=== PATIENT | female | born 1930 | race Caucasian/White ===

== ENCOUNTER 2018-09-10 16:46 | Inpatient (IN) | payer MEDICARE, BC ==
[~2018-09-10] VITALS: Ht 160 cm; Wt 66.5 kg
[2018-09-10] VITALS (9 sets, daily range): BP systolic 96–161; BP diastolic 46–66; BMI 19.8
--- NOTE | ~2018-09-10 | EC ---
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 Ao 220 cm/sec RVOT 95 cm/sec RA cm/sec PA 146 cm/sec AV Gradient Peak 19.33mmHg AV Mean 9.71 mmHg AV Area 1.4 cm MV Gradient Peak 6.23 mmHg MV Mean 1.98 mmHg MV Area cm COMMENTS: Marine Equipment Sales Engineer: Angella QUIROGA Supervisor Roller Printing: 1 Dr. Miranda TAPE# PACS Pericardial Effusion N DATE OF SERVICE: 09/11/2018 ECHOCARDIOGRAM DATE OF SERVICE: 09/11/2018 FINDINGS: 1. Left ventricular chamber size is within normal limits. Left ventricular systolic function is normal. Overall ejection fraction estimated at 60%. 2. Left atrium, right atrium, and right ventricular chamber sizes are within ECHOCARDIOGRAM REPORT [id number] MARISOL FALCON normal limits. 3. Valvular structures: Aortic valve demonstrates mild calcific aortic stenosis, valve area calculates 1.4 cm-squared. There is a gradient of 20-mm across the valve. The remaining valvular structures have normal structure and motion. 4. Doppler interrogation elsewise reveals mild aortic insufficiency, mild tricuspid regurgitation, no other valvular insufficiency or stenosis. Pulmonary systolic pressure is estimated at 27 mmHg. 5. No evidence of pericardial effusion or left ventricular thrombus. TRANSINT:[id number] Voice Confirmation ID: [id number] DOCUMENT ID: [id number] EVERETT MIRANDA MD CC: [id number] DICTATION DATE: 09/12/18 0853 MARKER HAND: 09/12/18 0941 ADM IN [facility] [id number] [place] [address]
[2018-09-10] MEDS ORDERED: NORVASC2.5 MG PO (16:53)
[2018-09-10] MEDS ORDERED: TIROSINT75 MCG PO (16:53)
[2018-09-10] MEDS ORDERED: COZAAR50 MG PO (16:54)
[2018-09-10] MEDS ORDERED: PACERONE200 MG PO (16:54)
[2018-09-10] MEDS ORDERED: ZOCOR40 MG PO (16:54)
[2018-09-10] MEDS ORDERED: BENTYL 20 MG TA20 MG PO (16:54)
[2018-09-10] MEDS ORDERED: PLAVIX75 MG PO (16:54)
[2018-09-10] MEDS ORDERED: PRESERVISION PO (16:55)
[2018-09-10] MEDS ORDERED: BAYER CHEWABLE81 MG PO (16:55)
[2018-09-10] MEDS ORDERED: MECLIZINE HCL25 MG PO (16:56)
[2018-09-10] MEDS ORDERED: CATAPRES0.1 MG PO (16:56)
[2018-09-10] MEDS ORDERED: ACETAMINOPHEN325 MG PO (16:57)
[2018-09-10] MEDS ORDERED: ZOFRAN ODT4 MG/UDTAB PO (16:57)
[2018-09-10] MEDS ORDERED: NITROSTAT0.4 MG SL (16:57)
[2018-09-10] MEDS ORDERED: VITAMIN B-121000 MCG IM (16:57)
[2018-09-10 17:35] LABS: BASOPHILS 0.4 % (0-2); EOSINOPHILS 0.7 % (0-7); IMMATURE GRANULOCYTES 0.2 % (0-5); LYMPHOCYTES 13.7 % (15-50); MCH 30.4 pg (26.0-34.0); MCHC 31.3 g/dL (31.0-37.0); MCV 97.2 fL (80.0-100.0); MEAN PLATELET VOLUME 8.5 fL (7.4-10.4); MONOCYTES 10.9 % (2-11); NEUTROPHILS 74.1 % (40-80); PLATELET COUNT 208 10x3/uL (130-400); RBC 2.47 10x6/uL (4.00-5.40); RDW 13.9 % (11.5-14.5); WBC 5.7 10x3/uL (4.8-10.8)
[2018-09-10 17:46] LABS: INR 1.13 (0.85-1.17)
[2018-09-10 17:49] LABS: HEMOGLOBIN 7.5 g/dL (12-16)
[2018-09-10 17:52] LABS: ALKALINE PHOSPHATASE 58 U/L (46-116); ALT (SGPT) 21 U/L (10-68); BILIRUBIN - TOTAL 0.36 mg/dL (0.2-1.3); CALC OSMOLALITY 289 mosm/kg (275-300); CALCIUM 7.8 mg/dL (8.5-10.1); CARBON DIOXIDE 25.4 mmol/L (21.0-32.0); CHLORIDE - SERUM 107 mmol/L (98-107); CREATININE - SERUM 0.9 mg/dL (0.6-1.3); GLUCOSE 94 mg/dL (74-106); POTASSIUM - SERUM 3.9 mmol/L (3.5-5.1); PROTEIN - SERUM 6.3 g/dL (6.4-8.2); SODIUM 142 mmol/L (136-145); UREA NITROGEN 31 mg/dL (7-18); eGFR NON AFRICAN AMERICAN 63 mL/min (90-120)
[2018-09-10 18:02] LABS: CKMB 0.7 U/L (0.0-3.6); CREATINE KINASE 57 UL (21-215)
[2018-09-10 18:03] LABS: TROPONIN-I < 0.017 ng/mL (0.000-0.060)
--- NOTE | 2018-09-10 19:32 | NUR ---
RECIEVED REPORT FROM LIBORIO CEDENO IN ER, AWAIT PATIENT ARRIVAL.
--- NOTE | 2018-09-10 20:30 | NUR ---
PATIENT ARRIVED TO UNIT 1999, MOVED SELF TO ICU BED FROM [facility], SAFETY MAINTAINED. ADMISSIONS ASSESSMENT COMPLETE, PLEASE SEE FLOW SHEETS FOR DETAILS. PERSONAL BELONGINGS INCLUDE [place]JAMA SHIRT AND PANTS, SHOES AND GLASSES. FAMILY IN ROOM AT 2030, THEY HAVE HER PURSE AND WILL TAKE IT HOME. PATIENT DENIES PAIN/NEEDS. HEMODYNAMICALLY STABLE UPON ARRIVAL AND AT END OF ASSESSMENT PERIOD. ALL QUESTIONS FROM FAMILY AND PATIENT ANSWERED. WILL CONTINUE PLAN OF CARE.
--- NOTE | 2018-09-10 21:00 | NUR ---
ASSISTED UP TO BEDSIDE CAMODE. SOME DIZZINESS AND LIGHTHEADEDNESS NOTED. APPLIED COOL RAG TO FACE AND NACK, THIS HELPED PER PATIENT. VOID AND STOOL OUT. MAX ASSIST BACK TO BED, VERY DIZZY AND LIGHTHEADED. SAFETY MAINTAINED AND REPOSITIONED IN BED FOR COMFORT. STATES FEELS BETTER BACK TO BED. HEMODYNAMICALLY STABLE. BED LOW AND LOCKED, CALL LIGHT IN REACH. WILL CONTINUE PLAN OF CARE.
--- NOTE | 2018-09-10 22:56 | NUR ---
REASSESSMENT COMPLETE, PLEASE SEE FLOW SHEETS FOR DETAILS. NO ACUTE CHANGES FROM PREVIOUS ASSESSMENT TO NOTE. DENIES PAIN/NEEDS. HEMODYNAMICALLY STABLE. BED LOW AND LOCKED, CALL LIGHT IN REACH. WILL CONTINUE PLAN OF CARE.
[2018-09-11] VITALS (25 sets, daily range): BP systolic 112–165; BP diastolic 51–92
[2018-09-11 00:50] LABS: BASOPHILS 0.7 % (0-2); EOSINOPHILS 0.9 % (0-7); HEMATOCRIT 20.6 % (36.0-48.0); LYMPHOCYTES 13.6 % (15-50); MCHC 31.1 g/dL (31.0-37.0); MCV 96.7 fL (80.0-100.0); MEAN PLATELET VOLUME 9.1 fL (7.4-10.4); MONOCYTES 11.8 % (2-11); PLATELET COUNT 198 10x3/uL (130-400); RBC 2.13 10x6/uL (4.00-5.40); RDW 13.9 % (11.5-14.5); WBC 5.5 10x3/uL (4.8-10.8)
[2018-09-11 00:51] LABS: HEMOGLOBIN 6.4 g/dL (12-16)
--- NOTE | 2018-09-11 00:53 | NUR ---
LAB CALLED CRITICAL LAB, CALLED DR BARRIGA AND UPDATED, ORDERS RECIEVED.
--- NOTE | 2018-09-11 01:00 | NUR ---
CONSENT FOR BLOOD OBTAINED. NO QUESTIONS. VSS. WILL CONTINUE PLAN OF CARE.
--- NOTE | 2018-09-11 03:00 | NUR ---
REASSESSMENT COMPLETE, PLEASE SEE FLOW SHEETS FOR DETAILS. NO ACUTE CHANGES FROM PREVIOUS ASSESSMENT TO NOTE. RECIEVING BLOOD AT THIS TIME, TOLERATING WELL, NO REACTION TO NOTE. DENIES PAIN/NEEDS. BED LOW AND LOCKED, CALL LIGHT IN REACH. WILL CONTINUE PLAN OF CARE.
--- NOTE | 2018-09-11 07:00 | NUR ---
REPORT REOPCED FROM OUT GOING RN - PT AA&OX 4 - CPOC
[2018-09-11 07:11] LABS: ANION GAP 13.5 mmol/L (8-16); CALCIUM 7.5 mg/dL (8.5-10.1); CARBON DIOXIDE 22.3 mmol/L (21.0-32.0); CREATININE - SERUM 0.9 mg/dL (0.6-1.3); POTASSIUM - SERUM 3.8 mmol/L (3.5-5.1)
[2018-09-11 07:36] LABS: % SATURATION 16 % (15-55); IRON 49 ug/dl (35-150); TOTAL IRON BIND CAPACITY 290 ug/dl (260-445); UNSAT IRON BIND CAPACITY 241 ug/dl (150-375)
[2018-09-11 07:49] LABS: BASOPHILS 0.6 % (0-2); EOSINOPHILS 0.7 % (0-7); LYMPHOCYTES 18.5 % (15-50); MCH 29.7 pg (26.0-34.0); MCHC 31.6 g/dL (31.0-37.0); MEAN PLATELET VOLUME 9.2 fL (7.4-10.4); MONOCYTES 11.3 % (2-11); NEUTROPHILS 68.9 % (40-80); PLATELET COUNT 188 10x3/uL (130-400); RDW 15.1 % (11.5-14.5); WBC 5.4 10x3/uL (4.8-10.8)
[2018-09-11 07:54] LABS: HEMATOCRIT 25.6 % (36.0-48.0); HEMOGLOBIN 8.1 g/dL (12-16); MCV 93.8 fL (80.0-100.0); RBC 2.73 10x6/uL (4.00-5.40)
--- NOTE | 2018-09-11 09:00 | NUR ---
PT PLACEDON BED DAWSON ~500 URINE OUT PUT WITH SMALL SOFT STOOL - ORDER FOR URINE CULTURE - PT AGEED TO HAVE KOHLER PLACED - AGREED -
--- NOTE | 2018-09-11 09:25 | NUR ---
DR. CABRERA AT BEDSIDE FOR ASSESSMENT - ANSWERED ALL THE QUESTIONS TO PATIENT'S SATISFACTION - CPOC
--- NOTE | 2018-09-11 11:30 | NUR ---
DOG FOOD DOUGH MIXER AT BEDSIDE - CPOC
[2018-09-11 11:46] LABS: APPEARANCE CLEAR (CLEAR); COLOR YELLOW (YELLOW)
[2018-09-11 11:47] LABS: BILIRUBIN NEGATIVE (NEGATIVE); GLUCOSE NEGATIVE (NEGATIVE); KETONE SMALL mg/dL (NEGATIVE); NITRITE NEGATIVE (NEGATIVE); PROTEIN NEGATIVE (NEGATIVE); UROBILINOGEN NORMAL (NORMAL)
--- NOTE | 2018-09-11 12:00 | NUR ---
DR. MUNOZ - AT BEDSIDE FOR ASSESSMENT - PLAN FOR EGD TOMORROW 09/12/18 WITH TIVA - CONSENT FORMS PRINTED TO PRESENT TO PATIENT - CPOC
--- NOTE | 2018-09-11 12:50 | NUR ---
PT PLACED ON BED DAWSON - SMALL SOFT BRWON STOOL - CPOC
[2018-09-11 13:13] LABS: BASOPHILS 0.5 % (0-2); EOSINOPHILS 1.2 % (0-7); HEMATOCRIT 26.9 % (36.0-48.0); HEMOGLOBIN 8.6 g/dL (12-16); IMMATURE GRANULOCYTES 0.2 % (0-5); MCH 29.9 pg (26.0-34.0); MCV 93.4 fL (80.0-100.0); MEAN PLATELET VOLUME 8.9 fL (7.4-10.4); MONOCYTES 10.8 % (2-11); NEUTROPHILS 77.3 % (40-80); PLATELET COUNT 178 10x3/uL (130-400); RBC 2.88 10x6/uL (4.00-5.40); RDW 15.5 % (11.5-14.5)
--- NOTE | 2018-09-11 14:08 | NUR ---
ANSWERED CALL LIGHT - PLACED PT ON BED DAWSON -
--- NOTE | 2018-09-11 14:13 | MORECARE ---
CASE MANAGEMENT DISCHARGE SUMMARY PATIENT: MARISOL FALCON UNIT: [id number] ADM DATE: 09/10/18 AGE: 87 : [birth year] SEX: F ROOM/BED: D.2304 AUTHOR: LORENA,DOC PHYSICIAN: REFERRING PHYSICIAN: VENTURA BARRIGA MD DATE OF SERVICE: 09/11/18 Discharge Plan Patient Name: MARISOL FALCON Facility: [facility]:[place] : 1930 Planned Disposition: Anticipated Discharge Date: 09/13/18 Discharge Date: Expected LOS: 3 Initial Reviewer: [email or web address] Initial Review Date: 09/10/2018 Generated: 09/11/18 3:13 pm DCP- Discharge Planning Updated by [email or web address]: Tiffany Buck on 09/11/18 1:[address] Patient Name: MARISOL FALCON Admission Status: ER Accout number: [id number] Admission Date: 09-10-2018 : 1930 Admission Diagnosis: Attending: VENTURA BARRIGA Current LOS: 1 Anticipated DC Date: 09-13-2018 Planned Disposition: Primary Insurance: MEDICARE A & B Discharge Planning Comments: CM met with patient, her son, and her daughter to complete initial dc planning assessment. CM educated patient on the CM role and verbal consent given by patient to complete assessment. Patient lives at home alone and reports she is mostly independent in her care. She reports she has tried several times to get meals on wheels but they tell her she lives outside of the service area. She reports she lives 4 miles from the hospital. At discharge patient plans to return home and feels this is a safe discharge. CM discussed availability of home health, rehab services, and medical equipment. Patient unsure of known discharge needs at this time. CM will continue to follow and will assist as needed with dc plans/needs. Mohel: Tiffany Buck DCPIA - Discharge Planning Initial Assessment Updated by [email or web address]: Tiffany Buck on 09/11/18 2:10 pm * Is the patient Alert and Oriented? Yes * How many steps to enter\exit or inside your home? three * PCP Dr. Mikael Farfan [facility] * [facility] [address] * Preadmission Environment Home Alone * ADLs Independent * Equipment Cane Rolling Walker Wheelchair * List name and contact numbers for known caregivers / representatives who currently or will assist patient after discharge: Alan Falcon - son - [phone] Mireille Pratt - daughter - [phone] * Verbal permission to speak to the caregivers and representatives has been obtained from the patient. Yes * Community resources currently utilized None * Please name any agencies selected above. Has tried to get meals on wheels but they don't go to her house. She lives 4 miles from the hospital. * Additional services required to return to the preadmission environment? No * Can the patient safely return to the preadmission environment? Yes * Has this patient been hospitalized within the prior 30 days at any hospital? Yes Patient Name: MARISOL FALCON Page [id number] at 1413 All edits/amendments must be made on the electronic document DICTATION DATE: 09/11/181411 LITERATURE PROFESSOR: RADHA 09/11/181411 RPT#: [id number] DC DATE: STATUS: ADM IN [facility] [address] [place] [address] END OF REPORT
--- NOTE | 2018-09-11 14:40 | NUR ---
PT OFF BEDPAN - SOFT BROWN STOOL - PT RESTING WITH EYES CLOSED - RESPIRATIONS REG RATE AND RHYTHM
--- NOTE | 2018-09-11 15:33 | NUR ---
PLACED PT ON BED DAWSON - LIQUID RED STOOL - CLEANED PT - CPOC
--- NOTE | 2018-09-11 17:30 | NUR ---
RED LIQUID STOOL - PT INCONTENENT OF STOOL, BATHED PATIENT - CHANGED LINENS AND BED CLOTHES. CPOC
--- NOTE | 2018-09-11 18:08 | NUR ---
PLACED PT ON BED DAWSON - LIQUID RED COLORED STOOL -
--- NOTE | 2018-09-11 18:30 | NUR ---
LIQUID RED STOOL - BATHED PT CHANGED LINENS AND BED CLOTHS - PT RESTING
[2018-09-11 18:42] LABS: PATH REVIEW PERIPHERAL SMEAR REVIEWED
--- NOTE | 2018-09-11 19:30 | NUR ---
BEDSIDE SHIFT REPORT GIVEN BY DEPARTING RN. PT LAYING IN BED WATCHING TV. RT FA PIV INFUSING MD ORDERED MEDS. AAOX4. PERRLA. DENIES PAIN AT THIS TIME. ASSESSMENT COMPLETE. SEE FLOWSHEET FOR DETAILS. SAFETY MEASURES IN PLACE. CBIR.
--- NOTE | 2018-09-11 19:31 | NUR ---
USED CALL ROBERSON TO REQUEST CALL ROBERSON. MAROON RED LIQUID BM NOTED.
--- NOTE | 2018-09-11 19:45 | NUR ---
USED CALL LIGHT TO ALERT NURSE. REQUESTED BED DAWSON. LARGE AMOUNT OF MAROON RED LOOSE STOOL NOTED. PARTIAL LINEN CHANGE.
--- NOTE | 2018-09-11 20:15 | NUR ---
HS MEDS GIVEN. SWALLOWED PO MEDS WITHOUT DIFFICULTY.
--- NOTE | 2018-09-11 20:30 | NUR ---
FAMILY AT BEDSIDE
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
--- NOTE | 2018-09-11 22:11 | NUR ---
USED CALL ROBERSON TO ALERT NURSE. BED DAWSON REQUESTED. SMALL AMOUNT MAROON LIQUID STILL NOTED.
--- NOTE | 2018-09-11 23:31 | NUR ---
REASSESSMENT COMPLETE. NO NEW CHANGES NOTED.
[2018-09-12] VITALS (25 sets, daily range): BP systolic 108–166; BP diastolic 48–89; Ht 160 cm; Wt 66.5 kg
--- NOTE | 2018-09-12 01:20 | NUR ---
USED CALL LIGHT TO ALERT NURSE. PT TANGLED IN MONITOR WIRES. UNTANGLED AND REPOSITIONED. SAFETY MEASURES IN PLACE. CBIR.
--- NOTE | 2018-09-12 03:02 | NUR ---
REASSESSMENT COMPLETE. PT C/O OF DRY MOUTH AND REQUESTED GUM TO CHEW. REQUEST DENIED AND EDUCATION PROVIDED FOR UPCOMING PROCEDURE. VERBALIZES UNDERSTANDING. VSS. SAFETY MEASURES IN PLACE. CBIR.
[2018-09-12 04:26] LABS: BASOPHILS 0.6 % (0-2); EOSINOPHILS 1.9 % (0-7); HEMOGLOBIN 8.4 g/dL (12-16); MCHC 32.3 g/dL (31.0-37.0); MCV 92.9 fL (80.0-100.0); MEAN PLATELET VOLUME 9.1 fL (7.4-10.4); MONOCYTES 12.4 % (2-11); NEUTROPHILS 70.1 % (40-80); PLATELET COUNT 186 10x3/uL (130-400); RDW 15.3 % (11.5-14.5); WBC 5.3 10x3/uL (4.8-10.8)
[2018-09-12 04:47] LABS: ANION GAP 10.5 mmol/L (8-16); CALCIUM 7.3 mg/dL (8.5-10.1); CARBON DIOXIDE 25.8 mmol/L (21.0-32.0); CREATININE - SERUM 0.8 mg/dL (0.6-1.3); POTASSIUM - SERUM 3.3 mmol/L (3.5-5.1)
--- NOTE | 2018-09-12 07:00 | NUR ---
PT RESTING IN BED WITH STABLE VS. CALL ROBERSON IN REACH. AWAKE ALERT AND ORIENTED
--- NOTE | 2018-09-12 07:49 | NUR ---
OBTAINED EKG FOR EGD TODAY
--- NOTE | 2018-09-12 09:00 | NUR ---
PT RESTING IN BED C CALL ROBERSON IN REACH. VSS. NO COMPLAINTS
--- NOTE | 2018-09-12 11:00 | NUR ---
EGD CANCELLED TODAY AND RESCHEDULED FOR TOMORROW. PT NOTIFIED
--- NOTE | 2018-09-12 13:00 | NUR ---
PT RESTING IN BED WITH CALL ROBERSON IN REACH. VSS. NO COMPLAINTS.
--- NOTE | 2018-09-12 15:00 | NUR ---
PT HAD LOOSE BM. NURSES CLEANED AND CHANGED. ACQUIRED OCCULT BLOOD SPECIMEN
[2018-09-12 16:27] LABS: HEMATOCRIT 28.7 % (36.0-48.0)
--- NOTE | 2018-09-12 17:00 | NUR ---
PT RESTING IN BED WITH STABLE VS. CALL ROBERSON IN REACH. NO COMPLAINTS. SERVED DINNER TRAY
--- NOTE | 2018-09-12 19:14 | NUR ---
BEDSIDE SHIFT REPORT GIVEN BY DEPARTING RN. PT IN BED LAYING ON BED DAWSON. ADVISED SHE WILL ALERT NURSE WHEN SHE IS FINISHED. AAOX4. PERRLA. C/O ARTHRITIS PAIN. DENIES ANY NEEDS AT THIS TIME. ASSESSMENT COMPLETE. SEE FLOWSHEET FOR DETAILS. SAFETY MEASURES IN PLACE. CBIR.
--- NOTE | 2018-09-12 20:09 | NUR ---
OFF OF BED DAWSON. SCANT AMOUNT OF RED LIQUID. LINENS CHANGED. PARTIAL BATH AND DARIN CARE PROVIDED. PULLED UP IN BED. SAFETY MEASURES IN PLACE. CBIR.
--- NOTE | 2018-09-12 20:37 | NUR ---
FAMILY AT BEDSIDE. UPDATE GIVEN. ALL QUESTIONS ANSWERED.
--- NOTE | 2018-09-12 20:45 | NUR ---
HS MEDS GIVEN. PRN PAIN MED GIVEN FOR 5/10 ARTHRITIS PAIN. SEE MAR FOR FULL DETAILS.
--- NOTE | 2018-09-12 23:10 | NUR ---
REASSESSMENT COMPLETE. NO CHANGES IN PT CONDITION. VSS. SAFETY MEASURES IN PLACE. CBIR.
[2018-09-13] VITALS (25 sets, daily range): BP systolic 121–182; BP diastolic 47–115
--- NOTE | 2018-09-13 00:55 | NUR ---
LAYING IN BED ASLEEP SHOWING NO SS OF DISTRESS. VSS. NO NEEDS VOICED.
--- NOTE | 2018-09-13 03:33 | NUR ---
REASSESSMENT COMPLETE. NO CHANGES NOTED. VSS.
[2018-09-13 04:26] LABS: BASOPHILS 0.2 % (0-2); EOSINOPHILS 1.5 % (0-7); HEMATOCRIT 23.8 % (36.0-48.0); HEMOGLOBIN 7.7 g/dL (12-16); IMMATURE GRANULOCYTES 0.2 % (0-5); MCHC 32.4 g/dL (31.0-37.0); MCV 92.6 fL (80.0-100.0); MEAN PLATELET VOLUME 9.2 fL (7.4-10.4); MONOCYTES 17.5 % (2-11); NEUTROPHILS 68.6 % (40-80); PLATELET COUNT 183 10x3/uL (130-400); RBC 2.57 10x6/uL (4.00-5.40); RDW 15.1 % (11.5-14.5); WBC 5.3 10x3/uL (4.8-10.8)
[2018-09-13 04:47] LABS: CALCIUM 7.3 mg/dL (8.5-10.1); CARBON DIOXIDE 24.3 mmol/L (21.0-32.0); CREATININE - SERUM 0.8 mg/dL (0.6-1.3); POTASSIUM - SERUM 3.3 mmol/L (3.5-5.1)
--- NOTE | 2018-09-13 06:53 | NUR ---
RECEIVD REPORT FROM WILIAN CORREIA. PATIENT RESTING IN BED AWAKE, ALERT, AND ORIENTED. ANESTHESIA TEAM HERE PREPPING FOR EGD BY DR. PARISH.
--- NOTE | 2018-09-13 07:33 | NUR ---
ACCIDENTALLY DID 0700 ASSESSMENT UNDER BREN NDIAYE'S ID. PT RESTING IN BED POST EGD VISITING WITH FAMILY.
--- NOTE | 2018-09-13 08:10 | NUR ---
FIRST UNIT OF PRBC INITIATED. VSS
--- NOTE | 2018-09-13 08:25 | NUR ---
VSS 15 MINUTES INTO BLOOD TRANSFUSION. INCREASED INFUSION FROM 75 TO 100ML/HR.
--- NOTE | 2018-09-13 10:00 | NUR ---
REMOVED KOHLER CATHETER AT THIS TIME.
[2018-09-13 10:17] LABS: FOLATE (FOLIC ACID) - SERUM >20.0 ng/mL (>3.0)
--- NOTE | 2018-09-13 10:45 | NUR ---
BLOOD TRANSFUSION OF 1ST UNIT COMPLETE AT THIS TIME. VSS.
--- NOTE | 2018-09-13 11:20 | NUR ---
SECOND UNIT OF BLOOD STARTED AT THIS TIME AT 75ML/HR. VSS.
--- NOTE | 2018-09-13 12:43 | NUR ---
BLOOD INFUSING AT 125. VSS. ORDERED CHICKEN NOODLE SOUP FOR PT PER REQUEST
--- NOTE | 2018-09-13 13:10 | NUR ---
PT'S HAD SEVERAL LOOSE BLOODY BOWEL MOVEMENTS ON BEDPAN. CHANGED ALL LINENS AND GOWNA AND GAVE BED BATH
--- NOTE | 2018-09-13 14:15 | NUR ---
BLOOD TRANSFUSION COMPLETE. VSS
--- NOTE | 2018-09-13 15:00 | NUR ---
PT HAS HAD 3 LOOSE BLOODY BM'S IN PAST HOUR. CLEANED BY NURSE AND LINENS CHANGED. VSS. CALL ROBERSON IN REACH
[2018-09-13 16:12] LABS: HEMATOCRIT 37.1 % (36.0-48.0); HEMOGLOBIN 12.5 g/dL (12-16)
--- NOTE | 2018-09-13 17:00 | NUR ---
LOOSE BM. NURSE CLEANED AND CHANGED. VSS. CALL ROBERSON IN REACH
--- NOTE | 2018-09-13 20:00 | NUR ---
FAMILY AT BEDSIDE UPDATE PROVIDED AND QUESTIONS ANSWERED. FAMILY/PT DENIES NEEDS AT THIS TIME. CALL LIGHT WITHIN PT REACH. CPOC.
--- NOTE | 2018-09-13 21:56 | NUR ---
ASSISTED ON/OFF BEDPAN, LIQUID STOOL PRESENT. DARIN CARE PROVIDED, PARTIAL LINEN CHANGE COMPLETE. PT DENIES FURTHER NEEDS. CALL LIGHT AND BEDSIDE TABLE WITHIN PT REACH. CPOC.
--- NOTE | 2018-09-13 23:30 | NUR ---
REASSESSMENT COMPLETE, NO NEW CHANGES AT THIS TIME. PT ASSISTED ON/OFF BEDPAN, DARIN CARE PROVIDED, PAD CHANGED. PT DENIES PAIN AT THIS TIME. VSS, DENIES NEEDS. CALL LIGHT WITHIN PT REACH. CPOC.
[2018-09-14] VITALS (31 sets, daily range): BP systolic 99–182; BP diastolic 45–124
--- NOTE | 2018-09-14 01:30 | NUR ---
ASSISTED ON/OFF BEDPAN, PARTIAL BATH AND LINEN CHANGE PROVIDED. REPOSITIONED IN BED FOR COMFORT. DENIES FURTHER NEEDS AT THIS TIME. CALL LIGHT AND BEDSIDE TABLE WITHIN PT REACH. CPOC.
[2018-09-14 02:53] LABS: BASOPHILS 0.8 % (0-2); EOSINOPHILS 2.8 % (0-7); HEMATOCRIT 35.1 % (36.0-48.0); HEMOGLOBIN 11.8 g/dL (12-16); IMMATURE GRANULOCYTES 0.2 % (0-5); LYMPHOCYTES 13.5 % (15-50); MCH 29.6 pg (26.0-34.0); MCHC 33.6 g/dL (31.0-37.0); MEAN PLATELET VOLUME 8.8 fL (7.4-10.4); MONOCYTES 14.3 % (2-11); NEUTROPHILS 68.4 % (40-80); PLATELET COUNT 159 10x3/uL (130-400); RDW 15.1 % (11.5-14.5)
[2018-09-14 02:56] LABS: MCV 88.2 fL (80.0-100.0); RBC 3.98 10x6/uL (4.00-5.40)
[2018-09-14 03:00] LABS: CALC OSMOLALITY 283 mosm/kg (275-300); CALCIUM 7.6 mg/dL (8.5-10.1); CARBON DIOXIDE 27.5 mmol/L (21.0-32.0); CHLORIDE - SERUM 108 mmol/L (98-107); CREATININE - SERUM 0.7 mg/dL (0.6-1.3); GLUCOSE 82 mg/dL (74-106); POTASSIUM - SERUM 3.3 mmol/L (3.5-5.1); SODIUM 144 mmol/L (136-145); UREA NITROGEN 6 mg/dL (7-18); eGFR NON AFRICAN AMERICAN 84 mL/min (90-120)
--- NOTE | 2018-09-14 03:30 | NUR ---
REASSESSMENT COMPLETE, NO NEW CHANGES AT THIS TIME. PT REPOSITIONED FOR COMFORT. VSS, NO C/O PAIN AT THIS TIME. DENIES NEEDS. CALL LIGHT AND BEDSIDE TABLE WITHIN PT REACH. CPOC.
--- NOTE | 2018-09-14 05:36 | NUR ---
PT ASSISTED ON/OFF BEDPAN, COMPLETE LINEN CHANGE PROVIDED, BED BATH PROVIDED USING CHLORHEXIDINE WIPES. VSS, NO C/O PAIN AT THIS TIME. PT WITH PROMINENCES BRIDGED. CALL LIGHT AND BEDSIDE TABLE WITHIN PT REACH. CPOC.
--- NOTE | 2018-09-14 06:42 | NUR ---
NEW ORDERS PER JEM FOR CLR LIQUID BREAKFAST, NPO AFTER 9AM. COLONOSCOPY TO BE DONE AROUND 1600.
--- NOTE | 2018-09-14 09:41 | NUR ---
0700 AWAKE ALERT INSTRUCTED NPO AFTER 9AM VERBALIZED UNDERSTANDING. ASSESSMENT COMPLETE
--- NOTE | 2018-09-14 09:56 | NUR ---
0800 CLEAR LIQUID DIET SERVED UP TO BEDPAN TO URINATE
--- NOTE | 2018-09-14 09:57 | NUR ---
0900 HAD LAST SIP OF WATER REMINDED NPO FOR COLONOSCOPY VOIDED ON BEDPAN
--- NOTE | 2018-09-14 11:03 | NUR ---
1100 INCONTINENT OF URINE TOTAL BATH DONE NEW LINENS PLACED ON BED
--- NOTE | 2018-09-14 11:54 | NUR ---
Nutrition follow-up: Pt now NPO for colonoscopy today Pt has not had more than clear liquids since admit Labs reviewed Wt: 147@ +BM, bloody Will need to begin nutrition support if diet is unable to advance today. RDN following.
[2018-09-14 12:12] LABS: HEMATOCRIT 37.1 % (36.0-48.0); HEMOGLOBIN 12.4 g/dL (12-16)
--- NOTE | 2018-09-14 13:42 | NUR ---
1300 REMAINS NPO FOR COLONOSCOPY SCHEDULED FOR [address] PARISH
--- NOTE | 2018-09-14 16:27 | NUR ---
1500 FAMILY MEMBERS AT BEDSIDE WAITING FOR PROCEEDURE TO START
--- NOTE | 2018-09-14 16:30 | NUR ---
7460 DR PARISH AT BEDSIDE TO START COLONOSCOPY FAMILY MEMBERS IN WAITING ROOM
--- NOTE | 2018-09-14 19:12 | NUR ---
1814 C/O ABDOMINAL CRAMPING TURNED PT ONTO LEFT SIDE TO PASS GAS STATES IT HELPED SERVED REGULAR DIET TRAY APPETITE GOOD
--- NOTE | 2018-09-14 19:30 | NUR ---
AOX4. UNLABORED RESPIRATIONS, LUNG SOUNDS CLEAR. S1S2 HEARD, PERIPHERAL PULSES PRESENT. BOWEL SOUNDS ACTIVE IN ALL QUADRANTS. PT REPOSITIONED FOR COMFORT. VSS, NO C/O PAIN AT THIS TIME. CALL LIGHT AND BEDSIDE TABLE WITHIN PT REACH. CPOC.
--- NOTE | 2018-09-14 21:30 | NUR ---
PT ASSISTED ON/OFF BEDPAN. DARIN AREA CLEANED AND PT REPOSITIONED FOR COMFORT WITH PROMINENCES BRIDGED. VSS, PT DENIES FURTHER NEEDS AT THIS TIME. RESTING COMFORTABLY. CALL LIGHT AND BEDSIDE TABLE WITHIN PT REACH. CPOC.
--- NOTE | 2018-09-14 23:09 | NUR ---
REASSESSMENT COMPLETE, NO NEW CHANGES AT THIS TIME. PT RESTING QUIETLY WITH NO S/S OF DISTRESS OR PAIN. REPOSITIONED WITH PROMINENCES BRIDGED. VSS, DENIES NEEDS. CALL LIGHT AND BEDSIDE TABLE WITHIN PT REACH. CPOC.
[2018-09-15] VITALS (16 sets, daily range): BP systolic 104–161; BP diastolic 54–87
--- NOTE | 2018-09-15 00:45 | NUR ---
PT ASSISTED ON/OFF BEDPAN. COMPLETE LINEN CHANGE AND PARTIAL BATH PROVIDED
--- NOTE | 2018-09-15 03:30 | NUR ---
REASSESSMENT COMPLETE, NO NEW CHANGES AT THIS TIME. PT REPOSITIONED FOR COMFORT, PROMINENCES BRIDGED. VSS, DENIES FURTHER NEEDS. CALL LIGHT AND BEDSIDE TABLE WITHIN PT REACH. CPOC.
[2018-09-15 04:52] LABS: BASOPHILS 0.2 % (0-2); EOSINOPHILS 1.6 % (0-7); HEMATOCRIT 33.2 % (36.0-48.0); HEMOGLOBIN 11.3 g/dL (12-16); IMMATURE GRANULOCYTES 0.1 % (0-5); LYMPHOCYTES 7.8 % (15-50); MCV 88.1 fL (80.0-100.0); MEAN PLATELET VOLUME 9.3 fL (7.4-10.4); MONOCYTES 9.4 % (2-11); NEUTROPHILS 80.9 % (40-80); PLATELET COUNT 181 10x3/uL (130-400); RBC 3.77 10x6/uL (4.00-5.40)
[2018-09-15 04:53] LABS: WBC 8.1 10x3/uL (4.8-10.8)
[2018-09-15 05:06] LABS: ANION GAP 12.7 mmol/L (8-16); CALCIUM 7.7 mg/dL (8.5-10.1); CARBON DIOXIDE 24.7 mmol/L (21.0-32.0); CREATININE - SERUM 0.8 mg/dL (0.6-1.3); POTASSIUM - SERUM 3.4 mmol/L (3.5-5.1)
--- NOTE | 2018-09-15 05:46 | NUR ---
PT REPOSITIONED FOR COMFORT. PARTIAL LINEN CHANGE PROVIDED. VSS, NO S/S OF ACUTE DISTRESS. CALL LIGHT WITHIN PT REACH. CPOC.
--- NOTE | 2018-09-15 08:28 | NUR ---
0700 AWAKE ALERT DENIES PAIN ASSESSMWNT COMPLETE
--- NOTE | 2018-09-15 08:28 | NUR ---
0800 REGULAR TRAY DELIVERED VOIDED 500ML PER BEDPAN PROVIDED ORAL CARE SUPPLIES VISITOR AT BEDSIDE
--- NOTE | 2018-09-15 11:29 | NUR ---
1000 DR LANGLEY ROUNDING ON PATIENT
--- NOTE | 2018-09-15 11:30 | NUR ---
113 PHYSICAL THERAPY WORKING WITH PATIENT
--- NOTE | 2018-09-15 14:10 | NUR ---
RECIEVED TO ROOM 1209 FROM ICU. SITTING UP IN RECLINER. CALL LIGHT WITHIN REACH. DENIES ANY NEEDS AT THIS TIME.
--- NOTE | 2018-09-15 14:18 | NUR ---
1300 REMAINS UP IN CHAIR EATING LUNCH
--- NOTE | 2018-09-15 14:19 | NUR ---
8288 REPORT CALLED TO AGUSTIN ON MED THREE. TRANSPORTED PT TO ROOM 1207
--- NOTE | 2018-09-15 17:51 | MORECARE ---
CASE MANAGEMENT DISCHARGE SUMMARY PATIENT: MARISOL FALCON UNIT: [id number] ADM DATE: 09/10/18 AGE: 87 : [birth year] SEX: F ROOM/BED: D.1209 AUTHOR: MINISTERIO CARRILLO PHYSICIAN: REFERRING PHYSICIAN: VENTURA BARRIGA MD DATE OF SERVICE: 09/15/18 Discharge Plan Patient Name: MARISOL FALCON Facility: [facility]:[place] : 1930 Planned Disposition: Anticipated Discharge Date: 09/13/18 Discharge Date: Expected LOS: 3 Initial Reviewer: [email or web address] Initial Review Date: 09/10/2018 Generated: 09/15/18 6:51 pm Comments DCP- Discharge Planning Updated by [email or web address]: Martha Pulido on 09/15/18 4:[address] Patient requesting Home Health Services upon discharge. Patient's PCP is doctor Roxie Youssef [facility] [phone]. CM called office to see if Dr. Youssef would follow patient for Home Health. Staff told CM that Dr. Youssef was out today and they would call CM back in am. [facility] signed for [place] and CM contacted (Amparo) [facility] [phone] fax [phone]. They stated they would be able to admit patient Wednesday or Wednesday. CM faxed records to office. [place] will call back in am to confirm when patient to be discharged. CM will continue to follow and assist as needed with discharge planning / needs. DCP- Discharge Planning Updated by [email or web address]: Tiffany Buck on 09/11/18 1:[address] Patient Name: MARISOL FALCON Admission Status: ER Accout number: [id number] Admission Date: 09-10-2018 : 1930 Admission Diagnosis: Attending: VENTURA BARRIGA Current LOS: 1 Anticipated DC Date: 09-13-2018 Planned Disposition: Primary Insurance: MEDICARE A & B Discharge Planning Comments: CM met with patient, her son, and her daughter to complete initial dc planning assessment. CM educated patient on the CM role and verbal consent given by patient to complete assessment. Patient lives at home alone and reports she is mostly independent in her care. She reports she has tried several times to get meals on wheels but they tell her she lives outside of the service area. She reports she lives 4 miles from the hospital. At discharge patient plans to return home and feels this is a safe discharge. CM discussed availability of home health, rehab services, and medical equipment. Patient unsure of known discharge needs at this time. CM will continue to follow and will assist as needed with dc plans/needs. Business Services Vice President: Tiffany Buck DCPIA - Discharge Planning Initial Assessment Updated by [email or web address]: Tiffany Buck on 09/11/18 2:10 pm * Is the patient Alert and Oriented? Yes * How many steps to enter\exit or inside your home? three * PCP Dr. Mikael Farfan [facility] * [facility] [address] * Preadmission Environment Home Alone * ADLs Independent * Equipment Cane Rolling Walker Wheelchair * List name and contact numbers for known caregivers / representatives who currently or will assist patient after discharge: Alan Falcon - son - [phone] Mireille Pratt - daughter - [phone] * Verbal permission to speak to the caregivers and representatives has been obtained from the patient. Yes * Community resources currently utilized None * Please name any agencies selected above. Has tried to get meals on wheels but they don't go to her house. She lives 4 miles from the hospital. * Additional services required to return to the preadmission environment? No * Can the patient safely return to the preadmission environment? Yes * Has this patient been hospitalized within the prior 30 days at any hospital? Yes Last DP export: 09/11/18 1:13 p Patient Name: MARISOL FALCON Page [id number] at 1751 All edits/amendments must be made on the electronic document DICTATION DATE: 09/15/181749 REPEATER CHIEF: RADHA 09/15/181749 RPT#: [id number] DC DATE: STATUS: ADM IN [facility] [address] [place] [address] END OF REPORT
--- NOTE | 2018-09-15 18:10 | MORECARE ---
CASE MANAGEMENT DISCHARGE SUMMARY PATIENT: MARISOL FALCON UNIT: [id number] ADM DATE: 09/10/18 AGE: 87 : [birth year] SEX: F ROOM/BED: D.1209 AUTHOR: MINISTERIO CARRILLO PHYSICIAN: REFERRING PHYSICIAN: VENTURA BARRIGA MD DATE OF SERVICE: 09/15/18 Discharge Plan Patient Name: MARISOL FALCON Facility: [facility]:[place] : 1930 Planned Disposition: Anticipated Discharge Date: 09/13/18 Discharge Date: Expected LOS: 3 Initial Reviewer: [email or web address] Initial Review Date: 09/10/2018 Generated: 09/15/18 7:10 pm Comments DCP- Discharge Planning Updated by [email or web address]: Martha Pulido on 09/15/18 4:[address] Patient requesting Home Health Services upon discharge. Patient's PCP is doctor Roxie Youssef [facility] [phone]. CM called office to see if Dr. Youssef would follow patient for Home Health. Staff told CM that Dr. Youssef was out today and they would call CM back in am. [facility] signed for [place] and CM contacted (Amparo) [facility] [phone] fax [phone]. They stated they would be able to admit patient Wednesday or Wednesday. CM faxed records to office. [facility] will call back in am to confirm when patient to be discharged. CM will continue to follow and assist as needed with discharge planning / needs. DCP- Discharge Planning Updated by [email or web address]: Tiffany Buck on 09/11/18 1:[address] Patient Name: MARISOL FALCON Admission Status: ER Accout number: [id number] Admission Date: 09-10-2018 : 1930 Admission Diagnosis: Attending: VENTURA BARRIGA Current LOS: 1 Anticipated DC Date: 09-13-2018 Planned Disposition: Primary Insurance: MEDICARE A & B Discharge Planning Comments: CM met with patient, her son, and her daughter to complete initial dc planning assessment. CM educated patient on the CM role and verbal consent given by patient to complete assessment. Patient lives at home alone and reports she is mostly independent in her care. She reports she has tried several times to get meals on wheels but they tell her she lives outside of the service area. She reports she lives 4 miles from the hospital. At discharge patient plans to return home and feels this is a safe discharge. CM discussed availability of home health, rehab services, and medical equipment. Patient unsure of known discharge needs at this time. CM will continue to follow and will assist as needed with dc plans/needs. Geophysical Laboratory Director: Tiffany Buck DCPIA - Discharge Planning Initial Assessment Updated by [email or web address]: Tiffany Buck on 09/11/18 2:10 pm * Is the patient Alert and Oriented? Yes * How many steps to enter\exit or inside your home? three * P[facility] Mikael [facility]fan [facility] * [facility] [address] * Preadmission Environment Home Alone * ADLs Independent * Equipment Cane Rolling Walker Wheelchair * List name and contact numbers for known caregivers / representatives who currently or will assist patient after discharge: Alan Falcon - son - [phone] Mireille Pratt - daughter - [phone] * Verbal permission to speak to the caregivers and representatives has been obtained from the patient. Yes * Community resources currently utilized None * Please name any agencies selected above. Has tried to get meals on wheels but they don't go to her house. She lives 4 miles from the hospital. * Additional services required to return to the preadmission environment? No * Can the patient safely return to the preadmission environment? Yes * Has this patient been hospitalized within the prior 30 days at any hospital? Yes External Providers External Provider: [facility] Next Contact Date: Service Request Date: Service Type: Resolution: Reviewer: Comments: Last DP export: 09/15/18 4:51 pm Patient Name: MARISOL FALCON Page [phone] at 1810 All edits/amendments must be made on the electronic document DICTATION DATE: 09/15/181808 METER REPAIR SHOP SUPERVISOR: RADHA 09/15/181808 RPT#: [id number] DC DATE: STATUS: ADM IN [facility] [address] [place] [address] END OF REPORT
--- NOTE | 2018-09-15 18:20 | NUR ---
NO CHANGES NOTED AT THIS TIME. SITTING UP IN RECLINER.
--- NOTE | 2018-09-16 01:00 | NUR ---
PATIENT LAYING IN BED. EYES CLOSED WITH CHEST RISING AND FALLING. NO DISTRESS NOTED.
--- NOTE | 2018-09-16 01:23 | NUR ---
PATIENT SITTING IN RECLINER. FAMILY IN ROOM. NO COMPLAINTS AT THIS TIME. NO DISTRESS NOTED.
--- NOTE | 2018-09-16 01:41 | NUR ---
I have reviewed this patient and I concur with the Shift Assessment completed by the Licensed Practical Nurse today this shift.
[2018-09-16 04:00] VITALS: BP 131/43
--- NOTE | 2018-09-16 08:04 | NUR ---
PATIENT SITTING AT SIDE OF BED EATING BREAKFAST. NO COMPLAINTS OR SIGNS OF DISTRESS. FAMILY AT BEDSIDE. ALL NEEDS MET AT THIS TIME.
[2018-09-16 08:05] VITALS: BP 181/64
[2018-09-16 08:48] LABS: BASOPHILS 0.3 % (0-2); EOSINOPHILS 2.2 % (0-7); HEMATOCRIT 37.5 % (36.0-48.0); HEMOGLOBIN 12.5 g/dL (12-16); IMMATURE GRANULOCYTES 0.2 % (0-5); LYMPHOCYTES 9.4 % (15-50); MCHC 33.3 g/dL (31.0-37.0); MCV 89.9 fL (80.0-100.0); MEAN PLATELET VOLUME 9.3 fL (7.4-10.4); MONOCYTES 8.6 % (2-11); NEUTROPHILS 79.3 % (40-80); PLATELET COUNT 185 10x3/uL (130-400); RBC 4.17 10x6/uL (4.00-5.40); RDW 15.1 % (11.5-14.5)
[2018-09-16 09:04] LABS: ANION GAP 13.7 mmol/L (8-16); CALCIUM 8.1 mg/dL (8.5-10.1); CARBON DIOXIDE 24.4 mmol/L (21.0-32.0); CREATININE - SERUM 1.1 mg/dL (0.6-1.3)
[2018-09-16 09:05] LABS: POTASSIUM - SERUM 3.1 mmol/L (3.5-5.1)
[2018-09-16 12:06] VITALS: BP 150/61
[2018-09-16] MEDS ORDERED: NORVASC5 MG PO (12:27)
[2018-09-16] MEDS ORDERED: PROTONIX40 MG PO (12:27)
[2018-09-16] MEDS ORDERED: FLORAJEN3 CAPS460 MG PO (12:27)
[2018-09-16] MEDS ORDERED: FLAGYL500 MG PO (12:28)
--- NOTE | 2018-09-16 14:16 | NUR ---
THIS RN APPROVES OF THE ASSISTANT FILM EDITOR CHARTING. ASSISTED PT NEEDED
[2018-09-16 18:53] VITALS: BP 161/66
[2018-09-16 20:36] VITALS: BP 152/60
--- NOTE | 2018-09-16 21:49 | NUR ---
THE PATIENT WAS LYING IN BED WHEN STAFF ENTERED HER ROOM. BED IS IN TH VINEET WPOSITION WITH SIDERAILS X2 AND CALL LIGHT WITHIN REACH. THE PATIENT WAS EDUCATED ON AND DEMONSTRATED USE OF A CALL LIGHT. THE PATIENT APPEARS COMFORTABLE WITH NO QUESTIONS OR CONCERNS AT THIS TIME.
[2018-09-17 01:08] VITALS: BP 138/49
--- NOTE | 2018-09-17 02:31 | NUR ---
THE PATIENT APPEARS TO BE SLEEPING WITH BED IN TH ELOW POSITION, SIDERAILS X2, AND CALL LIGHT WITHIN REACH.
[2018-09-17 05:29] VITALS: BP 142/52
[2018-09-17 07:17] LABS: BASOPHILS 0.4 % (0-2); EOSINOPHILS 1.6 % (0-7); HEMOGLOBIN 10.4 g/dL (12-16); IMMATURE GRANULOCYTES 0.2 % (0-5); LYMPHOCYTES 10.3 % (15-50); MCH 29.3 pg (26.0-34.0); MCHC 32.5 g/dL (31.0-37.0); MCV 90.1 fL (80.0-100.0); MEAN PLATELET VOLUME 8.6 fL (7.4-10.4); MONOCYTES 12.6 % (2-11); NEUTROPHILS 74.9 % (40-80); PLATELET COUNT 152 10x3/uL (130-400); RBC 3.55 10x6/uL (4.00-5.40); RDW 14.8 % (11.5-14.5); WBC 5.7 10x3/uL (4.8-10.8)
--- NOTE | 2018-09-17 07:52 | NUR ---
ROUNDING DONE WITH PATIENT SITTING ON SIDE OF BED WAITING FOR BREAKFAST TRAY. GLASSES ON. RIGHT WRIST PIV SEEN WITH NS INFUSING AT 75 CC/HR. ON ROOM AIR. ON EP, AWAITING LAB RESULTS. WILL MONITOR. WALKER SEEN IN ROOM, ENCOURAGED PATIENT TO PLEASE ASK FOR ASSISTANCE. STATES TO UNDERSTANDING.
[2018-09-17 08:12] LABS: ANION GAP 12.5 mmol/L (8-16); CALCIUM 7.7 mg/dL (8.5-10.1); CARBON DIOXIDE 23.7 mmol/L (21.0-32.0); CREATININE - SERUM 0.9 mg/dL (0.6-1.3); POTASSIUM - SERUM 4.2 mmol/L (3.5-5.1)
[2018-09-17 08:27] VITALS: BP 137/65
--- NOTE | 2018-09-17 08:27 | NUR ---
POTASSIUM ON EP IS 4.2 THIS AM, WILL NOT COVER WITH SUPPLEMENTS.
--- NOTE | 2018-09-17 11:24 | NUR ---
SALINE LOCK REMOVED WITH CATH TIP INTACT. VERBAL AND WRITTEN DISCHARGE INSTRUCTIONS GIVEN TO PATIENT AND FEMALE FAMILY MEMBER. DISCHARGED HOME VIA WHEELCHAIR.
--- NOTE | 2018-09-18 18:40 | MORECARE ---
CASE MANAGEMENT DISCHARGE SUMMARY PATIENT: MARISOL FALCON UNIT: [id number] ADM DATE: 09/10/18 AGE: 87 : [birth year] SEX: F ROOM/BED: D.1209 AUTHOR: MINISTERIO CARRILLO PHYSICIAN: REFERRING PHYSICIAN: VENTURA BARRIGA MD DATE OF SERVICE: 09/18/18 Discharge Plan Patient Name: MARISOL FALCON Facility: [facility]:[place] : 1930 Planned Disposition: Home with Home Health Anticipated Discharge Date: 09/13/18 Discharge Date: 09/17/2018 Expected LOS: 3 Initial Reviewer: [email or web address] Initial Review Date: 09/10/2018 Generated: 09/18/18 7:40 pm DCP- Discharge Planning Updated by [email or web address]: Martha Pulido on 09/15/18 4:[address] Patient requesting Home Health Services upon discharge. Patient's PCP is doctor Roxie Youssef [facility] Physician [phone]. CM called office to see if Dr. Youssef would follow patient for Home Health. Staff told CM that Dr. Youssef was out today and they would call CM back in am. [facility] signed for [place] and CM contacted (Amparo) [facility] [phone] fax [phone]. They stated they would be able to admit patient Wednesday or Wednesday. CM faxed records to office. [place] will call back in am to confirm when patient to be discharged. CM will continue to follow and assist as needed with discharge planning / needs. DCP- Discharge Planning Updated by [email or web address]: Tiffany Buck on 09/11/18 1:[address] Patient Name: MARISOL FALCON Admission Status: ER Accout number: [id number] Admission Date: 09-10-2018 : 1930 Admission Diagnosis: Attending: VENTURA BARRIGA Current LOS: 1 Anticipated DC Date: 09-13-2018 Planned Disposition: Primary Insurance: MEDICARE A & B Discharge Planning Comments: CM met with patient, her son, and her daughter to complete initial dc planning assessment. CM educated patient on the CM role and verbal consent given by patient to complete assessment. Patient lives at home alone and reports she is mostly independent in her care. She reports she has tried several times to get meals on wheels but they tell her she lives outside of the service area. She reports she lives 4 miles from the hospital. At discharge patient plans to return home and feels this is a safe discharge. CM discussed availability of home health, rehab services, and medical equipment. Patient unsure of known discharge needs at this time. CM will continue to follow and will assist as needed with dc plans/needs. Camouflage Assembler: Tiffany Buck DCPIA - Discharge Planning Initial Assessment Updated by [email or web address]: Tiffany Buck on 09/11/18 2:10 pm * Is the patient Alert and Oriented? Yes * How many steps to enter\exit or inside your home? three * PCP Dr[facility]ael [facility]fan [facility] * [facility] [address] * Preadmission Environment Home Alone * ADLs Independent * Equipment Cane Rolling Walker Wheelchair * List name and contact numbers for known caregivers / representatives who currently or will assist patient after discharge: Alan Falcon - son - [phone] Mireille Pratt - daughter - [phone] * Verbal permission to speak to the caregivers and representatives has been obtained from the patient. Yes * Community resources currently utilized None * Please name any agencies selected above. Has tried to get meals on wheels but they don't go to her house. She lives 4 miles from the hospital. * Additional services required to return to the preadmission environment? No * Can the patient safely return to the preadmission environment? Yes * Has this patient been hospitalized within the prior 30 days at any hospital? Yes Last DP export: 09/15/18 5:10 pm Patient Name: MARISOL FALCON Page [id number] at 1840 All edits/amendments must be made on the electronic document DICTATION DATE: 09/18/181838 DRESS OPERATOR: RADHA 09/18/181838 RPT#: [id number] DC DATE:09/17/18 STATUS: DIS IN [facility] [address] [place] [address] END OF REPORT
--- NOTE | 2018-09-18 18:46 | MORECARE ---
CASE MANAGEMENT DISCHARGE SUMMARY PATIENT: MARISOL FALCON UNIT: [id number] ADM DATE: 09/10/18 AGE: 87 : [birth year] SEX: F ROOM/BED: D.1209 AUTHOR: LORENA,DOC PHYSICIAN: REFERRING PHYSICIAN: VENTURA BARRIGA MD DATE OF SERVICE: 09/18/18 Discharge Plan Patient Name: MARISOL FALCON Facility: [facility]:[place] : 1930 Planned Disposition: Home with Home Health Anticipated Discharge Date: 09/13/18 Discharge Date: 09/17/2018 Expected LOS: 3 Initial Reviewer: [email or web address] Initial Review Date: 09/10/2018 Generated: 09/18/18 7:46 pm Comments DCP- Discharge Planning Updated by [email or web address]: Kathi Guthrie on 09/18/18 5:[address] LATE ENTRY 09/17/18 SPOKE WITH ZEYNEP AT [facility]. FAXED DISCHARGE SUMMARY, GI NOTE, DISCHARGE MED LIST TO [phone]. DCP- Discharge Planning Updated by [email or web address]: Martha Pulido on 09/15/18 4:[address] Patient requesting Home Health Services upon discharge. Patient's PCP is doctor Roxie Youssef [facility] Physician [phone]. CM called office to see if Dr. Youssef would follow patient for Home Health. Staff told CM that Dr. Youssef was out today and they would call CM back in am. [facility] signed for [place] and CM contacted (Amparo) [facility] [phone] fax [phone]. They stated they would be able to admit patient Wednesday or Wednesday. CM faxed records to office. [facility] will call back in am to confirm when patient to be discharged. CM will continue to follow and assist as needed with discharge planning / needs. DCP- Discharge Planning Updated by [email or web address]: Tiffany Buck on 09/11/18 1:[address] Patient Name: MARISOL FALCON Admission Status: ER Accout number: [id number] Admission Date: 09-10-2018 : 1930 Admission Diagnosis: Attending: VENTURA BARRIGA Current LOS: 1 Anticipated DC Date: 09-13-2018 Planned Disposition: Primary Insurance: MEDICARE A & B Discharge Planning Comments: CM met with patient, her son, and her daughter to complete initial dc planning assessment. CM educated patient on the CM role and verbal consent given by patient to complete assessment. Patient lives at home alone and reports she is mostly independent in her care. She reports she has tried several times to get meals on wheels but they tell her she lives outside of the service area. She reports she lives 4 miles from the hospital. At discharge patient plans to return home and feels this is a safe discharge. CM discussed availability of home health, rehab services, and medical equipment. Patient unsure of known discharge needs at this time. CM will continue to follow and will assist as needed with dc plans/needs. Technical Editor: Tiffany Buck DCPIA - Discharge Planning Initial Assessment Updated by [email or web address]: Tiffany Buck on 09/11/18 2:10 pm * Is the patient Alert and Oriented? Yes * How many steps to enter\exit or inside your home? three * PCP Dr[facility]fan [facility] * [facility] [address] * Preadmission Environment Home Alone * ADLs Independent * Equipment Cane Rolling Walker Wheelchair * List name and contact numbers for known caregivers / representatives who currently or will assist patient after discharge: Alan Falcon - son - [phone] Mireille Pratt - daughter - [phone] * Verbal permission to speak to the caregivers and representatives has been obtained from the patient. Yes * Community resources currently utilized None * Please name any agencies selected above. Has tried to get meals on wheels but they don't go to her house. She lives 4 miles from the hospital. * Additional services required to return to the preadmission environment? No * Can the patient safely return to the preadmission environment? Yes * Has this patient been hospitalized within the prior 30 days at any hospital? Yes Last DP export: 09/18/18 5:40 pm Patient Name: MARISOL FALCON Page [phone] at 1846 All edits/amendments must be made on the electronic document DICTATION DATE: 09/18/181845 RESEARCH ASSOCIATE QUALITY CONTROL QC: RADHA 09/18/181845 RPT#: [id number] DC DATE:04/06/19 STATUS: DIS IN [facility] [address] [place] [address] END OF REPORT
--- NOTE | 2018-09-20 08:57 | MORECARE ---
CASE MANAGEMENT DISCHARGE SUMMARY PATIENT: MARISOL FALCON UNIT: [id number] ADM DATE: 09/10/18 AGE: 87 : [birth year] SEX: F ROOM/BED: D.1209 AUTHOR: LORENA,DOC PHYSICIAN: REFERRING PHYSICIAN: VENTURA BARRIGA MD DATE OF SERVICE: 09/20/18 Discharge Plan Patient Name: MARISOL FALCON Facility: [facility]:[place] : 1930 Planned Disposition: Home with Home Health Anticipated Discharge Date: 09/13/18 Discharge Date: 09/17/2018 Expected LOS: 3 Initial Reviewer: [email or web address] Initial Review Date: 09/10/2018 Generated: 09/20/18 9:57 am Comments DCP- Discharge Planning Updated by [email or web address]: Kathi Guthrie on 09/18/18 5:[address] LATE ENTRY 09/17/18 SPOKE WITH ZEYNEP AT [facility]. FAXED DISCHARGE SUMMARY, GI NOTE, DISCHARGE MED LIST TO [phone]. DCP- Discharge Planning Updated by [email or web address]: Martha Pulido on 09/15/18 4:[address] Patient requesting Home Health Services upon discharge. Patient's PCP is doctor Roxie Youssef [facility] Physician [phone]. CM called office to see if Dr. Youssef would follow patient for Home Health. Staff told CM that Dr. Youssef was out today and they would call CM back in am. [facility] signed for [place] and CM contacted (Amparo) [facility] [phone] fax [phone]. They stated they would be able to admit patient Wednesday or Wednesday. CM faxed records to office. [facility] will call back in am to confirm when patient to be discharged. CM will continue to follow and assist as needed with discharge planning / needs. DCP- Discharge Planning Updated by [email or web address]: Tiffany uBck on 09/11/18 1:[address] Patient Name: MARISOL FALCON Admission Status: ER Accout number: [id number] Admission Date: 09-10-2018 : 1930 Admission Diagnosis: Attending: VENTURA BARRIGA Current LOS: 1 Anticipated DC Date: 09-13-2018 Planned Disposition: Primary Insurance: MEDICARE A & B Discharge Planning Comments: CM met with patient, her son, and her daughter to complete initial dc planning assessment. CM educated patient on the CM role and verbal consent given by patient to complete assessment. Patient lives at home alone and reports she is mostly independent in her care. She reports she has tried several times to get meals on wheels but they tell her she lives outside of the service area. She reports she lives 4 miles from the hospital. At discharge patient plans to return home and feels this is a safe discharge. CM discussed availability of home health, rehab services, and medical equipment. Patient unsure of known discharge needs at this time. CM will continue to follow and will assist as needed with dc plans/needs. Mold Stamper: Tiffany Buck DCPIA - Discharge Planning Initial Assessment Updated by [email or web address]: Tiffany Buck on 09/11/18 2:10 pm * Is the patient Alert and Oriented? Yes * How many steps to enter\exit or inside your home? three * P[facility] * [facility] [address] * Preadmission Environment Home Alone * ADLs Independent * Equipment Cane Rolling Walker Wheelchair * List name and contact numbers for known caregivers / representatives who currently or will assist patient after discharge: Alan Falcon - son - [phone] Mireille Pratt - daughter - [phone] * Verbal permission to speak to the caregivers and representatives has been obtained from the patient. Yes * Community resources currently utilized None * Please name any agencies selected above. Has tried to get meals on wheels but they don't go to her house. She lives 4 miles from the hospital. * Additional services required to return to the preadmission environment? No * Can the patient safely return to the preadmission environment? Yes * Has this patient been hospitalized within the prior 30 days at any hospital? Yes Last DP export: 09/18/18 5:46 pm Patient Name: MARISOL FALCON Page 23155 at 0857 All edits/amendments must be made on the electronic document DICTATION DATE: 09/20/18856 TRANSFORMER MAKER: RADHA 09/20/1857 RPT#: [id number] DC DATE:04/06/19 STATUS: DIS IN [facility] [address] [place] [address] END OF REPORT
== END 2018-09-17 11:27 | disposition home health service (06) | DRG 391 ==
LOC: D.ER 16:46 → D.ICU 18:12 → D.M3 09-15 14:10
PROVIDERS: Family Medicine; Internal Medicine Gastroenterology; ADMIT Internal Medicine Nephrology; ATTEND Internal Medicine Nephrology
PROC: 0DB98ZX Excision of Duodenum, Via Natural or Artificial Opening Endoscopic, Diagnostic (ICD-10-PCS; 2018-09-13)
PROC: 0DB78ZX Excision of Stomach, Pylorus, Via Natural or Artificial Opening Endoscopic, Diagnostic (ICD-10-PCS; 2018-09-13)
PROC: 0DBN8ZX Excision of Sigmoid Colon, Via Natural or Artificial Opening Endoscopic, Diagnostic (ICD-10-PCS; 2018-09-14)
PROC: 0DBL8ZZ Excision of Transverse Colon, Via Natural or Artificial Opening Endoscopic (ICD-10-PCS; 2018-09-14)
PROC: 0DBK8ZZ Excision of Ascending Colon, Via Natural or Artificial Opening Endoscopic (ICD-10-PCS; principal; 2018-09-14 16:00)
DX: K52.9 Noninfective gastroenteritis and colitis, unspecified (principal); K29.71 Gastritis, unspecified, with bleeding; D62 Acute posthemorrhagic anemia; N17.9 Acute kidney failure, unspecified; K44.9 Diaphragmatic hernia without obstruction or gangrene; R55 Syncope and collapse; I25.119 Atherosclerotic heart disease of native coronary artery with unspecified angina pectoris; K21.9 Gastro-esophageal reflux disease without esophagitis; E03.9 Hypothyroidism, unspecified; I10 Essential (primary) hypertension; E78.5 Hyperlipidemia, unspecified; Z85.038 Personal history of other malignant neoplasm of large intestine; D50.9 Iron deficiency anemia, unspecified; D12.2 Benign neoplasm of ascending colon; K64.8 Other hemorrhoids; D12.0 Benign neoplasm of cecum; D12.5 Benign neoplasm of sigmoid colon